=== PATIENT | male | born 1960 | race Caucasian/White ===

== ENCOUNTER 2017-12-21 10:37 | Day surgery (SDC) | payer OTHER ==
[2017-12-18 10:24] VITALS: BMI 33.3
[~2017-12-21 10:37] MED LIST: LACTATED RINGERS 1,000 ML IV SCH; LIDOCAINE 1% 20 ML VIAL (10MG/ML) FOR IV START INTRADERMA PRN; MIDAZOLAM 2 MG/2 ML VIAL IV PRN
[2017-12-21 10:58] VITALS: RESP 18; TEMP 98.5
[2017-12-21] MEDS ORDERED: LIDOCAINE 1% 20 ML VIAL (10MG/ML) FOR IV START INTRADERMA ONE (11:11)
--- NOTE | 2017-12-21 11:57 | P.GSHP ---
History of Present Illness H&P Date: 12/21/17 Chief Complaint: GI bleed This a 57-year-old male who's had issues with rectal bleeding. Patient presents today for colonoscopy. Past Medical History Past Medical History: GERD/Reflux, Hypertension Additional Past Medical History / Comment(s): bleeding with stools and colors the toilet water red,loose stools,abdominal gas feeling,irregular heartbeat History of Any Multi-Drug Resistant Organisms: None Reported Additional Past Surgical History / Comment(s): colonoscopy Past Anesthesia/Blood Transfusion Reactions: No Reported Reaction Smoking Status: Former smoker - Past Family History Mother Family Medical History: No Reported History Father Family Medical History: Cancer Additional Family Medical History / Comment(s): melanoma Medications and Allergies Home Medications Medication Instructions Recorded Confirmed Type Benazepril [Lotensin] 10 mg PO DAILY 12/18/17 12/21/17 History Cyanocobalamin (Vitamin B-12) 1,000 mcg PO DAILY 12/18/17 12/21/17 History [Vitamin B-12] Omeprazole 40 mg PO DAILY 12/18/17 12/21/17 History amLODIPine [Norvasc] 5 mg PO QAM 12/18/17 12/21/17 History Allergies Allergy/AdvReac Type Severity Reaction Status Date / Time No Known Allergies Allergy Verified 12/21/17 11:01 Surgical - Exam Vital Signs Temp Pulse Resp BP Pulse Ox 98.5 F 106 H 18 161/94 98 12/21/17 10:57 12/21/17 10:57 12/21/17 10:57 12/21/17 10:57 12/21/17 10:57 - General well developed, no distress - Eyes PERRL - ENT normal pinna - Neck no masses - Respiratory normal expansion - Cardiovascular Rhythm: regular - Abdomen Abdomen: soft, non tender Assessment and Plan Assessment: GI bleed. We'll perform colonoscopy.
[2017-12-21] MEDS ORDERED: LIDOCAINE 1% INJ 10MG/ML (20 ML MDV) ONE (11:58)
[2017-12-21] MEDS ORDERED: PROPOFOL 10 MG/ML 20 ML VIAL IV ONE (11:58)
--- NOTE | 2017-12-21 12:12 | P.OP ---
Date of Procedure: 12/21/17 Preoperative Diagnosis: GI bleed Postoperative Diagnosis: Proctitis Procedure(s) Performed: Colonoscopy Anesthesia: MAC Surgeon: Kimani Jiménez Pathology: other (Rectum) Condition: stable Disposition: PACU Description of Procedure: The patient's placed on the endoscopy table in the lateral position. He received IV sedation. Digital rectal exam was performed which revealed a few internal hemorrhoids. The flexible colonoscope was then placed patient anus passed throughout the entire colon. The ileocecal valve was visualized. The cecum, ascending and transverse colon appeared normal. The descending and sigmoid colon appeared normal. The scope was then brought back the rectum and the mucosa was very inflamed and friable. Several biopsies were performed. Scope was then withdrawn from the patient.
[2017-12-21 12:28] VITALS: BP 130/89; PULSE 81
== END 2017-12-21 12:44 | disposition home or self-care (01) ==
LOC: ORWHC2ENDO 10:37
PROVIDERS: ATTEND Surgery
DX: K52.9 Noninfective gastroenteritis and colitis, unspecified (principal); K62.89 Other specified diseases of anus and rectum; K64.8 Other hemorrhoids; K21.9 Gastro-esophageal reflux disease without esophagitis; I10 Essential (primary) hypertension; Z79.899 Other long term (current) drug therapy; Z87.891 Personal history of nicotine dependence
CPT/HCPCS: 45380; J2001; J2704; 88305

== ENCOUNTER 2020-02-06 21:41 | Inpatient (IN) | payer BC ==
[2020-02-06] MEDS ORDERED: ACETAMINOPHEN TAB 500 MG TAB PO STA (22:11)
[2020-02-06] MEDS ORDERED: IBUPROFEN 600 MG TAB PO STA (22:11)
--- NOTE | 2020-02-06 22:12 | ED ---
Fever HPI - General Chief Complaint: Chest Pain Stated Complaint: Fever, Chest Pain Time Seen by Provider: 02/06/20 22:10 Source: patient, RN notes reviewed, old records reviewed Mode of arrival: wheelchair Limitations: no limitations - History of Present Illness Initial Comments: This is a 59-year-old male DF for evaluation patient's episodic chest pain for one week positive nausea no vomiting no improvement or worsening of symptoms. No fevers. No travel history or sick contacts. Patient does have persistent chest pain currently. Denying any trauma. No cough or congestion, no current shortness of breath, patient does have history of high blood pressure MD Complaint: fever, weakness (Been chest pain), other (Not feeling well) -: week(s) Temperature Source: subjective Context: multiple patients with similar symptoms Associated Symptoms: chills, cough, chest pain Treatments Prior to Arrival: none - Related Data Home Medications Medication Instructions Recorded Confirmed Ergocalciferol (Vitamin D2) 50,000 unit PO MO 02/06/20 02/06/20 [Drisdol] Hydroxychloroquine Sulfate 200 mg PO BID 02/06/20 02/06/20 [Plaquenil] Mesalamine 1,600 mg PO TID 02/06/20 02/06/20 Omeprazole 20 mg PO DAILY 02/06/20 02/06/20 Previous Rx's Medication Instructions Recorded Amoxicillin/Potassium Clav 1 tab PO Q12HR 4 Days #8 tab 02/09/20 [Augmentin 875-125 Tablet] Aspirin 81 mg PO DAILY chew 02/09/20 Metoprolol Tartrate [Lopressor] 25 mg PO BID #60 tab 02/09/20 metroNIDAZOLE [Flagyl] 500 mg PO TID #12 tab 02/09/20 Allergies Allergy/AdvReac Type Severity Reaction Status Date / Time No Known Allergies Allergy Verified 02/06/20 23:48 Review of Systems ROS Statement: Those systems with pertinent positive or pertinent negative responses have been documented in the HPI. ROS Other: All systems not noted in ROS Statement are negative. Past Medical History Past Medical History: GERD/Reflux, Hypertension Additional Past Medical History / Comment(s): bleeding with stools and colors the toilet water red,loose stools,abdominal gas feeling,irregular heartbeat, colitis, arthritis History of Any Multi-Drug Resistant Organisms: None Reported Additional Past Surgical History / Comment(s): colonoscopy Past Anesthesia/Blood Transfusion Reactions: No Reported Reaction Past Psychological History: No Psychological Hx Reported Smoking Status: Former smoker Past Alcohol Use History: Occasional Past Drug Use History: None Reported - Past Family History Mother Family Medical History: No Reported History Father Family Medical History: Cancer Additional Family Medical History / Comment(s): melanoma General Exam Limitations: no limitations General appearance: alert, in no apparent distress, anxious Head exam: Present: atraumatic, normocephalic, normal inspection Eye exam: Present: normal appearance, PERRL, EOMI. Absent: scleral icterus, co njunctival injection, periorbital swelling ENT exam: Present: normal exam, mucous membranes moist Neck exam: Present: normal inspection. Absent: tenderness, meningismus, lymphadenopathy Respiratory exam: Present: normal lung sounds bilaterally. Absent: respiratory distress, wheezes, rales, rhonchi, stridor Cardiovascular Exam: Present: normal rhythm, tachycardia, normal heart sounds. Absent: systolic murmur, diastolic murmur, rubs, gallop, clicks GI/Abdominal exam: Present: soft, normal bowel sounds. Absent: distended, tenderness, guarding, rebound, rigid Extremities exam: Present: normal inspection, full ROM, normal capillary refill. Absent: tenderness, pedal edema, joint swelling, calf tenderness Back exam: Present: normal inspection Neurological exam: Present: alert, oriented X3, CN II-XII intact Psychiatric exam: Present: normal affect, normal mood Skin exam: Present: warm, dry, intact, normal color. Absent: rash Course Vital Signs 02/06/20 02/07/20 21:49 00:48 Temperature 102.6 F H 100.7 F H Pulse Rate 103 H 91 Respiratory 18 18 Rate Blood Pressure 144/81 130/70 O2 Sat by Pulse 98 95 Oximetry - Reevaluation(s) Reevaluation #1: Medical record is reviewed Patient does have diffuse body pain diffuse chest pain Patient is highly suspicious for covert infection Medical Decision Making - Medical Decision Making 59 male DF for evaluation patient presents today for evaluation of fever and chest pain bodyaches and pains. Patient be admitted for rule out covert, observation and symptom control - Lab Data Result diagrams: 02/09/20 05:53 02/09/20 05:53 Lab Results 06/08/20 06/08/20 06/08/20 Range/Units 22:10 22:10 22:10 WBC 6.3 (3.8-10.6) k/uL RBC 3.86 L (4.30-5.90) m/uL Hgb 11.9 L (13.0-17.5) gm/dL Hct 36.0 L (39.0-53.0) % MCV 93.4 (80.0-100.0) fL MCH 30.9 (25.0-35.0) pg MCHC 33.1 (31.0-37.0) g/dL RDW 12.6 (11.5-15.5) % Plt Count 204 (150-450) k/uL Neutrophils % 78 % Lymphocytes % 13 % Monocytes % 5 % Eosinophils % 3 % Basophils % 0 % Neutrophils # 4.9 (1.3-7.7) k/uL Lymphocytes # 0.8 L (1.0-4.8) k/uL Monocytes # 0.3 (0-1.0) k/uL Eosinophils # 0.2 (0-0.7) k/uL Basophils # 0.0 (0-0.2) k/uL PT 10.0 (9.0-12.0) sec INR 1.0 (<1.2) APTT 25.7 (22.0-30.0) sec D-Dimer 0.74 H (<0.60) mg/L FEU Sodium 132 L (137-145) mmol/L Potassium 4.1 (3.5-5.1) mmol/L Chloride 103 (98-107) mmol/L Carbon Dioxide 21 L (22-30) mmol/L Anion Gap 8 mmol/L BUN 20 (9-20) mg/dL Creatinine 1.45 H (0.66-1.25) mg/dL Est GFR (CKD-EPI)AfAm 61 (>60 ml/min/1.73 sqM) Est GFR (CKD-EPI)NonAf 53 (>60 ml/min/1.73 sqM) Glucose 183 H (74-99) mg/dL Plasma Lactic Acid Marlo (0.7-2.0) mmol/L Calcium 8.7 (8.4-10.2) mg/dL Magnesium 1.8 (1.6-2.3) mg/dL Ferritin 257.3 (22.0-322.0) ng/mL Total Bilirubin 0.5 (0.2-1.3) mg/dL AST 19 (17-59) U/L ALT 15 (4-49) U/L Alkaline Phosphatase 67 (38-126) U/L Lactate Dehydrogenase 378 (313-618) U/L Troponin I (0.000-0.034) ng/mL C-Reactive Protein 49.3 H (<10.0) mg/L Total Protein 6.9 (6.3-8.2) g/dL Albumin 3.8 (3.5-5.0) g/dL Procalcitonin (0.02-0.09) ng/mL Coronavirus (PCR) (Not Detected) 02/06/20 02/06/20 02/06/20 Range/Units 22:10 22:10 22:10 WBC (3.8-10.6) k/uL RBC (4.30-5.90) m/uL Hgb (13.0-17.5) gm/dL Hct (39.0-53.0) % MCV (80.0-100.0) fL MCH (25.0-35.0) pg MCHC (31.0-37.0) g/dL RDW (11.5-15.5) % Plt Count (150-450) k/uL Neutrophils % % Lymphocytes % % Monocytes % % Eosinophils % % Basophils % % Neutrophils # (1.3-7.7) k/uL Lymphocytes # (1.0-4.8) k/uL Monocytes # (0-1.0) k/uL Eosinophils # (0-0.7) k/uL Basophils # (0-0.2) k/uL PT (9.0-12.0) sec INR (<1.2) APTT (22.0-30.0) sec D-Dimer (<0.60) mg/L FEU Sodium (137-145) mmol/L Potassium (3.5-5.1) mmol/L Chloride (98-107) mmol/L Carbon Dioxide (22-30) mmol/L Anion Gap mmol/L BUN (9-20) mg/dL Creatinine (0.66-1.25) mg/dL Est GFR (CKD-EPI)AfAm (>60 ml/min/1.73 sqM) Est GFR (CKD-EPI)NonAf (>60 ml/min/1.73 sqM) Glucose (74-99) mg/dL Plasma Lactic Acid Marlo 1.3 (0.7-2.0) mmol/L Calcium (8.4-10.2) mg/dL Magnesium (1.6-2.3) mg/dL Ferritin (22.0-322.0) ng/mL Total Bilirubin (0.2-1.3) mg/dL AST (17-59) U/L ALT (4-49) U/L Alkaline Phosphatase (38-126) U/L Lactate Dehydrogenase (313-618) U/L Troponin I 0.139 H* (0.000-0.034) ng/mL C-Reactive Protein (<10.0) mg/L Total Protein (6.3-8.2) g/dL Albumin (3.5-5.0) g/dL Procalcitonin 0.15 H (0.02-0.09) ng/mL Coronavirus (PCR) (Not Detected) 02/06/20 Range/Units 22:48 WBC (3.8-10.6) k/uL RBC (4.30-5.90) m/uL Hgb (13.0-17.5) gm/dL Hct (39.0-53.0) % MCV (80.0-100.0) fL MCH (25.0-35.0) pg MCHC (31.0-37.0) g/dL RDW (11.5-15.5) % Plt Count (150-450) k/uL Neutrophils % % Lymphocytes % % Monocytes % % Eosinophils % % Basophils % % Neutrophils # (1.3-7.7) k/uL Lymphocytes # (1.0-4.8) k/uL Monocytes # (0-1.0) k/uL Eosinophils # (0-0.7) k/uL Basophils # (0-0.2) k/uL PT (9.0-12.0) sec INR (<1.2) APTT (22.0-30.0) sec D-Dimer (<0.60) mg/L FEU Sodium (137-145) mmol/L Potassium (3.5-5.1) mmol/L Chloride (98-107) mmol/L Carbon Dioxide (22-30) mmol/L Anion Gap mmol/L BUN (9-20) mg/dL Creatinine (0.66-1.25) mg/dL Est GFR (CKD-EPI)AfAm (>60 ml/min/1.73 sqM) Est GFR (CKD-EPI)NonAf (>60 ml/min/1.73 sqM) Glucose (74-99) mg/dL Plasma Lactic Acid Marlo (0.7-2.0) mmol/L Calcium (8.4-10.2) mg/dL Magnesium (1.6-2.3) mg/dL Ferritin (22.0-322.0) ng/mL Total Bilirubin (0.2-1.3) mg/dL AST (17-59) U/L ALT (4-49) U/L Alkaline Phosphatase (38-126) U/L Lactate Dehydrogenase (313-618) U/L Troponin I (0.000-0.034) ng/mL C-Reactive Protein (<10.0) mg/L Total Protein (6.3-8.2) g/dL Albumin (3.5-5.0) g/dL Procalcitonin (0.02-0.09) ng/mL Coronavirus (PCR) Not Detected (Not Detected) - EKG Data -: EKG Interpreted by Me (EKG shows sinus tachycardia rate of 110, SC 144, QRS 80, QTC 422) - Radiology Data Radiology results: report reviewed (Chest x-rays negative for acute disease, CT chest is negative for acute disease), image reviewed Critical Care Time Critical Care Time: Yes Total Critical Care Time: 31 Disposition Clinical Impression: Acute non-ST elevation myocardial infarction (NSTEMI), Fever, Chest pain Narrative: roCOVID Disposition: ADMITTED IP TO THIS HOSP Condition: Stable Is patient prescribed a controlled substance at d/c from ED?: No
[2020-02-06] MEDS ORDERED: MORPHINE SULFATE 4 MG/ML SYRINGE IVP STA (22:13)
[2020-02-06 22:26] LABS: Basophils % (A) 0 %; Eosinophils # (A) 0.2 k/uL (0-0.7); Eosinophils % (A) 3 %; HGB 11.9 gm/dL (13.0-17.5); Lymphocytes # (A) 0.8 k/uL (1.0-4.8); Lymphocytes % (A) 13 %; MCH 30.9 pg (25.0-35.0); MCHC 33.1 g/dL (31.0-37.0); MCV 93.4 fL (80.0-100.0); Monocytes # (A) 0.3 k/uL (0-1.0); Monocytes % (A) 5 %; Neutrophils # (A) 4.9 k/uL (1.3-7.7); Neutrophils % (A) 78 %; Platelet Count 204 k/uL (150-450); RBC 3.86 m/uL (4.30-5.90); RDW 12.6 % (11.5-15.5); WBC 6.3 k/uL (3.8-10.6)
[2020-02-06 22:37] LABS: Albumin 3.8 g/dL (3.5-5.0); C Reactive Protein 49.3 mg/L (<10.0); Calcium 8.7 mg/dL (8.4-10.2); Magnesium 1.8 mg/dL (1.6-2.3); Potassium 4.1 mmol/L (3.5-5.1); Total Bilirubin 0.5 mg/dL (0.2-1.3); Total Protein 6.9 g/dL (6.3-8.2)
--- NOTE | 2020-02-06 22:40 | XR ---
EXAMINATION TYPE: XR chest 2V DATE OF EXAM: 02/06/2020 COMPARISON: NONE HISTORY: Chest pain TECHNIQUE: 2 views FINDINGS: Heart and mediastinum are normal. Lungs are clear of infiltrate. There is minimal subsegmen anton atelectasis in the lower lung rodríguez. There is no pleural effusion. Bony thorax is intact. IMPRESSION: Minimal subsegmental atelectasis. Normal heart.
[2020-02-06 22:52] LABS: Partial Thromboplastin Time 25.7 sec (22.0-30.0)
[2020-02-06 23:12] LABS: D-Dimer 0.74 mg/L FEU (<0.60)
[2020-02-06] MEDS ORDERED: MORPHINE SULFATE 4 MG/ML SYRINGE IV PRN (23:21)
[2020-02-06] MEDS ORDERED: HEPARIN SODIUM,PORCINE 5,000 UNIT/ML 1 ML VIAL IV PRN (23:21)
[2020-02-06] MEDS ORDERED: ASPIRIN 81 MG PO STA (23:21)
[2020-02-06] MEDS ORDERED: NITROGLYCERIN SL TABS 0.4 MG TAB SUBLINGUAL PRN (23:21)
[2020-02-06] MEDS ORDERED: HEPARIN SODIUM,PORCINE 5,000 UNIT/ML 1 ML VIAL IV ONE (23:21)
[2020-02-06] MEDS ORDERED: HEPARIN SOD,PORK IN 0.45% NACL 25,000 UNIT in 0.45% NACL 1 250ML.BAG IV SCH (23:30)
--- NOTE | 2020-02-07 00:05 | CT ---
EXAMINATION TYPE: CT angio chest DATE OF EXAM: 02/06/2020 COMPARISON: None HISTORY: FEVER, COUGH CT DLP: 665.4 mGycm Automated exposure control for dose reduction was used. CONTRAST: Performed with IV Contrast, patient injected with 75 mL of Isovue 370. Multiple axial sections were obtained from the thoracic inlet to the diaphragm with IV contrast and 3 -D post processed images. There is mild subsegmental atelectasis and interstitial density right lower lobe and to a lesser exte nt left lower lobe. There is no pleural effusion. Heart size is normal. There is no pericardial effus ion. There are no hilar masses. There is no mediastinal adenopathy. There are paratracheal lymph node s that measure up to 7 mm. Thoracic aorta is intact. There is no aneurysm or dissection. There is normal contrast opacification of the pulmonary arteries. I see no filling defect. Bony thora x is intact. Upper abdominal soft tissues are intact. IMPRESSION: No evidence of pulmonary embolism. Mild interstitial density and subsegmental atelectasis at the lung bases.
[2020-02-07 01:07] LABS: Glucose,Whole Blood 128 mg/dL (75-99)
[2020-02-07 04:55] LABS: Basophils % (A) 0 %; Eosinophils # (A) 0.1 k/uL (0-0.7); Eosinophils % (A) 3 %; HCT 34.9 % (39.0-53.0); HGB 11.6 gm/dL (13.0-17.5); Lymphocytes % (A) 19 %; MCH 31.9 pg (25.0-35.0); MCHC 33.4 g/dL (31.0-37.0); MCV 95.5 fL (80.0-100.0); Mean Platelet Volume 7.3; Monocytes # (A) 0.3 k/uL (0-1.0); Monocytes % (A) 6 %; Neutrophils # (A) 3.8 k/uL (1.3-7.7); Neutrophils % (A) 71 %; Platelet Count 175 k/uL (150-450); RBC 3.65 m/uL (4.30-5.90); RDW 12.6 % (11.5-15.5); WBC 5.4 k/uL (3.8-10.6)
[2020-02-07 05:08] LABS: Calcium 8.5 mg/dL (8.4-10.2); Potassium 4.6 mmol/L (3.5-5.1)
[2020-02-07] MEDS ORDERED: NITROGLYCERIN SL TABS 0.4 MG TAB SUBLINGUAL PRN (07:32)
[2020-02-07] MEDS ORDERED: ALPRAZolam 0.5 MG TAB PO PRN (07:32)
[2020-02-07] MEDS ORDERED: ASPIRIN 325 MG TAB PO STA (07:32)
[2020-02-07] MEDS ORDERED: ALPRAZolam 0.25 MG TAB PO PRN (07:32)
[2020-02-07] MEDS ORDERED: ATORVASTATIN 80 MG TAB PO STA (07:32)
[2020-02-07] MEDS ORDERED: SODIUM CHLORIDE 0.9% 1,000 ML in EMPTY BAG 1 BAG IV ONE (07:32)
[2020-02-07] MEDS: ASPIRIN 81 MG PO SCH (08:39)
[2020-02-07] MEDS: METOPROLOL TARTRATE 25 MG TAB PO SCH ×2 (08:54→20:07)
[2020-02-07] MEDS ORDERED: ASPIRIN 325 MG TAB PO SCH (09:00)
[2020-02-07 09:11] LABS: Glucose,Whole Blood 113 mg/dL (75-99)
--- NOTE | 2020-02-07 10:35 | CONS ---
CONSULTATION Mr. Glez is a 59-year-old male who presented with symptoms of chest discomfort. He had discomfort last week on and off, than yesterday much worse. Some of his discomfort is exertional in pattern and he had a low-grade fever on presentation that subsequently resolved. He denies any cough or wheezing. The patient has no prior cardiac history. About a week ago he had swelling and effusion in the right knee that was drained. He has no prior cardiac workup. He denies any PND, orthopnea. He had a prior history of smoking which he stopped about 4 years ago. He has a history of hypertension. No diabetes. He has a history of colitis and occasional alcohol intake. MEDICATIONS: At home include omeprazole, Norvasc 5 mg daily, Plaquenil 200 mg twice a day, benazepril 40 mg daily, Tenormin 50 mg daily, and mesalamine 1600 mg 3 times a day, and vitamin D. REVIEW OF SYSTEMS: RESPIRATORY SYSTEM: He has no recent wheezing or cough. No history of documented obstructive lung disease. GI SYSTEM: He has history of colitis with occasional bleeding that has been stable. SYSTEM: No dysuria or hematuria. NERVOUS SYSTEM: No stroke or seizure. PHYSICAL EXAMINATION: He is a 59-year-old male, alert, oriented, in no apparent distress. Blood pressure 102/60 with a heart rate in the 70s. Temperature 98.3, on presentation 102.6. HEAD: Normocephalic. EYES: Sclerae nonicteric. NECK: Good upstroke, no bruit, no distention. LUNGS: Clear to auscultation. HEART: Regular rate and rhythm, S1, S2. No S3. No S4. No rub. ABDOMEN: Soft, nontender, obese. Positive bowel sounds, no organomegaly. EXTREMITIES: No edema, intact pulses. Right knee no tenderness. LAB DATA: Revealed a white blood cell of 5.4, hemoglobin of 11.6, BUN and creatinine 19 and 1.4, potassium 4.6. Troponin 0.139 and 0.390. Cholesterol 126, LDL of 75. His D-dimer was 0.74. His CT angiogram of the chest revealed no evidence of pulmonary embolism. His EKG reveals sinus mechanism, rate of [address]-segment depression on the lateral precordial leads. Her chest x-ray revealed minimal subsegmental atelectasis. IMPRESSION: 1. Non ST-segment elevation myocardial infarction. 2. Low-grade fever, resolved of unclear source. 3. History of hypertension. 4. Remote history of smoking. 5. History of colitis, stable. RECOMMENDATION: From the cardiac standpoint, I will obtain echocardiogram with Doppler. I would recommend to proceed with cardiac catheterization to further assess his status and guide his treatment. The rationale behind the procedures, risks, and complication were discussed with the patient, who is in full understanding and agreement. Thank you for this consult. Will follow with you. MMODL / IJN: [id number] /
--- NOTE | 2020-02-07 11:20 | ECHOF ---
Referral Reason:elevTrop MEASUREMENTS -------- HEIGHT: 157.5 cm WEIGHT: 116.6 kg BP: 94/63 RVIDd: 4.2 cm (< 3.3) IVSd: 1.6 cm (0.6 - 1.1) LVIDd: 4.9 cm (3.9 - 5.3) LVPWd: 1.5 cm (0.6 - 1.1) IVSs: 2.0 cm LVIDs: 3.6 cm LVPWs: 2.0 cm Ao Diam: 3.4 cm (2.0 - 3.7) AV Cusp: 2.6 cm (1.5 - 2.6) LA Diam: 3.2 cm (2.7 - 3.8) MV EXCURSION: 20.651 mm (> 18.000) MV EF SLOPE: 122 mm/s (70 - 150) EPSS: 0.6 cm MV E Randolph: 0.65 m/s MV DecT: 253 ms MV A Randolph: 0.49 m/s MV E/A Ratio: 1.33 RAP: 5.00 mmHg RVSP: 34.99 mmHg FINDINGS -------- Sinus rhythm. This was a technically difficult study with suboptimal views. The left ventricular size is normal. There is moderate concentric left ventricular hypertrophy. O verall left ventricular systolic function is low-normal with, an EF between 50 - 55 %. The right ventricle is severely enlarged. The left atrial size is normal. The right atrial size is normal. Lumason used The aortic valve is trileaflet and appears structurally normal. The mitral valve is normal. Mild mitral regurgitation is present. The tricuspid valve appears structurally normal. Mild tricuspid regurgitation present. Right vent ricular systolic pressure is normal at < 35 mmHg. There is no pulmonic regurgitation present. The aortic root size is normal. IVC Not well visulized. There is no pericardial effusion. CONCLUSIONS -------- 1. Sinus rhythm. 2. This was a technically difficult study with suboptimal views. 3. The left ventricular size is normal. 4. There is moderate concentric left ventricular hypertrophy. 5. Overall left ventricular systolic function is low-normal with, an EF between 50 - 55 %. 6. The right ventricle is severely enlarged. 7. The left atrial size is normal. 8. The right atrial size is normal. 9. Lumason used 10. The aortic valve is trileaflet and appears structurally normal. 11. The mitral valve is normal. 12. Mild mitral regurgitation is present. 13. The tricuspid valve appears structurally normal. 14. Mild tricuspid regurgitation present. 15. Right ventricular systolic pressure is normal at < 35 mmHg. 16. There is no pulmonic regurgitation present. 17. The aortic root size is normal. 18. IVC Not well visulized. 19. There is no pericardial effusion. COMMUNICATIONS SPECIALIST: Keke Purcell RDCS
[2020-02-07 12:28] LABS: Ferritin 257.3 ng/mL (22.0-322.0)
[2020-02-07] MEDS ORDERED: fentaNYL (PF) 50 MCG/ML 2 ML AMP IVP ONE (12:28)
[2020-02-07] MEDS ORDERED: MIDAZOLAM 2 MG/2 ML VIAL IVP ONE (12:28)
[2020-02-07] MEDS ORDERED: LIDOCAINE 1% INJ 10MG/ML (20 ML MDV) SQ ONE (12:28)
[2020-02-07] MEDS ORDERED: VERAPAMIL SYRINGE (5 MG/10 ML) INTRAARTER ONE (12:31)
[2020-02-07] MEDS ORDERED: HEPARIN SODIUM 1,000 UN/ML (10ML VL) IV ONE (12:36)
[2020-02-07] MEDS ORDERED: IOPAMIDOL-370 125ML BTL INJ ONE (12:38)
[2020-02-07] MEDS ORDERED: IV FLUID CONTINUATION 700 ML IV ONE (12:39)
[2020-02-07] MEDS ORDERED: RX INFO: IV CONTRAST WAS GIVEN 1 EACH MISC MISCELLANE PRN (12:50)
[2020-02-07] MEDS ORDERED: SODIUM CHLORIDE 0.9% 1,000 ML IV SCH (13:00)
[2020-02-07] MEDS: IOPAMIDOL CONTRAST (ORAL USE) VIAL PO PRN ×2 (15:15→16:21)
--- NOTE | 2020-02-07 16:17 | CC ---
CARDIAC CATHETERIZATION REPORT Mr. Glez is a 59-year-old male with known history of hypertension, history of colitis, who presented with symptoms of chest discomfort on and off for the last week, at times exertional in pattern; yesterday much worse. He also had a low-grade fever on presentation that subsequently resolved. After presentation he was found to have an elevated troponin. In view of that, recommendation was made regarding cardiac catheterization. The procedure, its risks and complications were discussed with the patient, who was in full understanding and agreement. PROCEDURE DESCRIPTION: Patient was brought to the [facility] tender restoration labor in a fasting, semi-sedated state after receiving fentanyl and Benadryl and achieving moderate conscious sedated state. Using Xylocaine anesthesia and Seldinger technique, a 6-Romanian sheath was introduced in the right radial artery. Selective right and left coronary angiography was performed using 5 Romanian 3-1/2 bend right and left Eloina catheters. Multiple views were taken of the coronary arteries, including hemiaxial views. Following that, the right Eloina catheter was used to cross the aortic valve and pressures were calculated. Following that, catheter and sheath were removed. Hemostasis was obtained with deployment of a TR band. There was no immediate complication. Patient was returned to his room in stable condition. Of note, the patient received 5000 units of intravenous heparin as well as intra-arterial verapamil. FINDINGS: LEFT MAIN: This is a short-sized vessel, large in caliber, bifurcating into left circumflex and left anterior descending artery. Left main coronary artery has no evidence of high-grade stenosis. LEFT ANTERIOR DESCENDING ARTERY: This is a large-sized vessel reaching toward the apex with a wrap around the apex segment giving rise to a large diagonal branch. The left anterior descending artery as well as its branches have no evidence of obstructive coronary artery disease. LEFT CIRCUMFLEX: This is a codominant large-sized vessel giving rise to two obtuse marginal branches and distally a left PDA. The left circumflex as well as its branches have no evidence of obstructive coronary artery disease. RIGHT CORONARY ARTERY: This is a moderately sized codominant vessel giving rise distally to PDA and a PLV. The right coronary artery as well as its branches have no evidence of obstructive coronary artery disease. LEFT VENTRICULOGRAM: Left ventriculogram was not performed. HEMODYNAMICS: There was no gradient across the aortic valve. The left ventricular end- diastolic pressure was 14 mmHg. CONCLUSION: 1. Normal coronary arteries with no evidence of obstructive coronary artery disease. 2. Normal left ventricular end-diastolic pressure. RECOMMENDATIONS: In view of findings and anatomy, I recommend continued medical therapy. The etiology of the elevation of the troponin is unclear. There is no evidence of obstructive disease, and on the echocardiogram there is no segmental wall motion abnormality. At this time I will continue present medical regimen. Those findings and recommendations were discussed with the patient, who is in full understanding and agreement. Duration of procedure was 15 minutes. DAVE / SARYN: [id number] /
--- NOTE | 2020-02-07 18:19 | CT ---
EXAMINATION TYPE: CT abdomen pelvis wo con DATE OF EXAM: 02/07/2020 COMPARISON: None HISTORY: fever, abdominal pain CT DLP: 1066.4 mGycm Automated exposure control for dose reduction was used. Images obtained from the diaphragm to the floor the pelvis with oral contrast only. Lung bases are clear of consolidation. There is no pleural effusion. Heart size is normal. There is n o pericardial effusion. Liver spleen pancreas gallbladder appear normal. Bile ducts are not dilated. Stomach has normal size. There is no adrenal mass. Kidneys have normal size and contour. There is some dilute contrast in the kidneys from contrast exam yesterday. There is no hydronephrosis. Ureters are not dilated. Bladder di stends smoothly without contrast. The bladder has normal size. There is no inguinal hernia. There is prostatic calcification. Appendix is posterior and appears normal. There is no mesenteric edema. There is no ascites or free air. There is no sign of a bowel obstructio n. Lumbar vertebra have normal alignment. Disc spaces are fairly normal. There is no compression fractur e. The bony pelvis appears intact. IMPRESSION: No sign of acute abdomen and pelvis. Normal appendix.
[2020-02-07] MEDS: metroNIDAZOLE 500 MG TAB PO SCH ×2 (18:49→22:02)
--- NOTE | 2020-02-07 22:04 | P.CONS ---
History of Present Illness - Reason for Consult Consult date: 02/07/20 Fever Requesting physician: Christiano Lutz - Chief Complaint chest pain and fever x 1 day - History of Present Illness Patient is a 59-year-old male with a past medical history significant for ulcerative colitis however apparently the patient seemed to have not been taking his medication as regularly patient presented to the ER at [facility] last night with chief complaints of chest pain patient apparently did have a discomfort off and on for about a week and the thought was more likely due to his muscle pull because of his work however her with the pain got worse that brought him to the hospital because have been more of a sharp in nature started worse with a deep breath and no radiation and no associated shortness of breath very minimal cough no nausea vomiting no abdominal pain patient did have some chronic diarrhea and apparently has recently slightly worse as he was not taking his colitis medication has advised with the symptom patient presented to hospital on arrival to the ER patient did have a fever of 102.6 F patient feels subsequently resolved and the patient will receive antibiotic therapy patient was tachycardic on presentation to the hospital work-up in the ER including patient did have a normal white count mild lymphopenia in the subsequently resolved d-dimer was slightly elevated creatinine was elevated 1.40 liver enzymes are normal troponin elevated CRP elevated and glucose is also slightly elevated LDH and ferritin has been normal lactic acid of 1.3 willett PCR is currently pending patient did have a CT angiogram that was were negative for PE and did not show any groundglass opacities or any consolidation patient has been admitted to the hospital ICU patient did have an echocardiogram and subsequent did have a cardiac cath did not show any obstructive disease infectious was consulted because of his fever and concern for possible COVID-19 infection. Review of Systems Positive point has been mentioned in HPI rest of the systems are negative Past Medical History Past Medical History: GERD/Reflux, Hypertension Additional Past Medical History / Comment(s): bleeding with stools and colors the toilet water red,loose stools,abdominal gas feeling,irregular heartbeat, colitis, arthritis History of Any Multi-Drug Resistant Organisms: None Reported Additional Past Surgical History / Comment(s): colonoscopy Past Anesthesia/Blood Transfusion Reactions: No Reported Reaction Past Psychological History: No Psychological Hx Reported Smoking Status: Former smoker Past Alcohol Use History: Occasional Additional Past Alcohol Use History / Comment(s): quit smoking 2016,started smoking at age 23,<1ppd Past Drug Use History: None Reported - Past Family History Mother Family Medical History: Hyperlipidemia Father Family Medical History: Cancer Additional Family Medical History / Comment(s): melanoma Medications and Allergies Home Medications Medication Instructions Recorded Confirmed Type amLODIPine [Norvasc] 5 mg PO DAILY 12/18/17 02/06/20 History Atenolol [Tenormin] 50 mg PO DAILY 02/06/20 02/06/20 History Benazepril HCl [Lotensin] 40 mg PO DAILY 02/06/20 02/06/20 History Ergocalciferol (Vitamin D2) 50,000 unit PO MO 02/06/20 02/06/20 History [Drisdol] Hydroxychloroquine Sulfate 200 mg PO BID 02/06/20 02/06/20 History [Plaquenil] Mesalamine 1,600 mg PO TID 02/06/20 02/06/20 History Omeprazole 20 mg PO DAILY 02/06/20 02/06/20 History Allergies Allergy/AdvReac Type Severity Reaction Status Date / Time No Known Allergies Allergy Verified 02/06/20 23:48 Physical Exam Vitals: Vital Signs Temp Pulse Resp BP Pulse Ox 02/07/20 13:00 98.0 F 68 22 96/66 98 02/07/20 11:00 64 20 106/68 02/07/20 10:00 72 30 H 106/68 02/07/20 09:00 80 23 106/68 02/07/20 08:00 97.9 F 75 22 108/68 99 02/07/20 04:00 98.3 F 73 18 94/63 96 02/07/20 01:05 99.2 F 88 18 102/64 96 02/07/20 00:48 100.7 F H 91 18 130/70 95 02/06/20 21:49 102.6 F H 103 H 18 144/81 98 Intake and Output 02/06/20 02/07/20 02/07/20 22:59 06:59 14:59 Intake Total 45.861 200 Output Total 950 900 Balance -904.139 -700 Intake: IV 200 Intake, IV Titration 45.861 Amount Heparin Sod,Pork in 0.45% 45.861 NaCl 25,000 unit In 0.45 % NaCl 1 250ml.bag @ 8.55 UNITS/KG/HR 10.006 mls/ hr IV .Q24H [facility] Rx#: [id number] Output: Urine 950 900 Other: Voiding Method Urinal Urinal Weight 117.027 kg 116.7 kg GENERAL DESCRIPTION: Middle-aged male lying in bed, no distress. No tachypnea or accessory muscle of respiration use. HEENT: Shows Pallor , no scleral icterus. Oral mucous membrane is dry. NECK: Trachea central, no thyromegaly. LUNGS: Unlabored breathing. Clear to auscultation anteriorly. No wheeze or crackle. HEART: S1, S2, regular rate and rhythm. ABDOMEN: Soft, no tenderness , guarding or rigidity EXTREMITIES: No edema of feet. SKIN: No rash, no masses palpable. NEUROLOGICAL: The patient is awake, alert, oriented x3, mood and affect normal. Results CBC & Chem 7: 02/07/20 04:33 02/07/20 04:33 Labs: Abnormal Lab Results - Last 24 Hours (Table) 02/06/20 02/06/20 02/06/20 Range/Units 22:10 22:10 22:10 RBC 3.86 L (4.30-5.90) m/uL Hgb 11.9 L (13.0-17.5) gm/dL Hct 36.0 L (39.0-53.0) % Lymphocytes # 0.8 L (1.0-4.8) k/uL APTT (22.0-30.0) sec D-Dimer 0.74 H (<0.60) mg/L FEU Sodium 132 L (137-145) mmol/L Carbon Dioxide 21 L (22-30) mmol/L Creatinine 1.45 H (0.66-1.25) mg/dL Glucose 183 H (74-99) mg/dL POC Glucose (mg/dL) (75-99) mg/dL Troponin I (0.000-0.034) ng/mL C-Reactive Protein 49.3 H (<10.0) mg/L HDL Cholesterol (40-60) mg/dL Procalcitonin (0.02-0.09) ng/mL 02/06/20 02/06/20 02/07/20 Range/Units 22:10 22:10 01:05 RBC (4.30-5.90) m/uL Hgb (13.0-17.5) gm/dL Hct (39.0-53.0) % Lymphocytes # (1.0-4.8) k/uL APTT (22.0-30.0) sec D-Dimer (<0.60) mg/L FEU Sodium (137-145) mmol/L Carbon Dioxide (22-30) mmol/L Creatinine (0.66-1.25) mg/dL Glucose (74-99) mg/dL POC Glucose (mg/dL) 128 H (75-99) mg/dL Troponin I 0.139 H* (0.000-0.034) ng/mL C-Reactive Protein (<10.0) mg/L HDL Cholesterol (40-60) mg/dL Procalcitonin 0.15 H (0.02-0.09) ng/mL 02/07/20 02/07/20 02/07/20 Range/Units 04:33 04:33 04:33 RBC 3.65 L (4.30-5.90) m/uL Hgb 11.6 L (13.0-17.5) gm/dL Hct 34.9 L (39.0-53.0) % Lymphocytes # (1.0-4.8) k/uL APTT 32.8 H (22.0-30.0) sec D-Dimer (<0.60) mg/L FEU Sodium (137-145) mmol/L Carbon Dioxide (22-30) mmol/L Creatinine (0.66-1.25) mg/dL Glucose (74-99) mg/dL POC Glucose (mg/dL) (75-99) mg/dL Troponin I 0.390 H* (0.000-0.034) ng/mL C-Reactive Protein (<10.0) mg/L HDL Cholesterol (40-60) mg/dL Procalcitonin (0.02-0.09) ng/mL 02/07/20 02/07/20 02/07/20 Range/Units 04:33 09:08 10:59 RBC (4.30-5.90) m/uL Hgb (13.0-17.5) gm/dL Hct (39.0-53.0) % Lymphocytes # (1.0-4.8) k/uL APTT (22.0-30.0) sec D-Dimer (<0.60) mg/L FEU Sodium 136 L (137-145) mmol/L Carbon Dioxide (22-30) mmol/L Creatinine 1.40 H (0.66-1.25) mg/dL Glucose 117 H (74-99) mg/dL POC Glucose (mg/dL) 113 H (75-99) mg/dL Troponin I 0.307 H* (0.000-0.034) ng/mL C-Reactive Protein (<10.0) mg/L HDL Cholesterol 36 L (40-60) mg/dL Procalcitonin (0.02-0.09) ng/mL 02/07/20 Range/Units 10:59 RBC (4.30-5.90) m/uL Hgb (13.0-17.5) gm/dL Hct (39.0-53.0) % Lymphocytes # (1.0-4.8) k/uL APTT 43.5 H (22.0-30.0) sec D-Dimer (<0.60) mg/L FEU Sodium (137-145) mmol/L Carbon Dioxide (22-30) mmol/L Creatinine (0.66-1.25) mg/dL Glucose (74-99) mg/dL POC Glucose (mg/dL) (75-99) mg/dL Troponin I (0.000-0.034) ng/mL C-Reactive Protein (<10.0) mg/L HDL Cholesterol (40-60) mg/dL Procalcitonin (0.02-0.09) ng/mL Assessment and Plan Assessment: patient presented to hospital with chest pain in this patient did have elevated troponin however the patient status post cardiac catheter with no evidence of any coronary disease he also have a CT angiogram that was negative for PE and did not show any consolidation or groundglass opacities patient did have a history of ulcerative colitis and apparently has vomiting his medication regularly with complaining of more diarrhea and some abdominal pain possible abdominal source for his fever and will need to cover for enteric gram-negative both aerobes and anaerobes. (1) Fever Current Visit: Yes Status: Acute Code(s): R50.9 - FEVER, UNSPECIFIED SNOMED Code(s): 838649097 Plan: 1-we will obtain a CT of abdominal pelvis with oral contrast only 2-check a stool for C. difficile and stool culture 3-empirically add Rocephin 2 g daily and Flagyl 500 p.o. every 8 We will follow on clinical condition and cultures to further adjust medication if needed Thank you for this consultation we will follow the patient along with you Time with Patient: Greater than 30
--- NOTE | 2020-02-07 22:36 | P.HPIM ---
History of Present Illness H&P Date: 02/07/20 Chief Complaint: fever, chest pain Alvarado Glez is a 59 yo M with PMH of HTN, GERD, ulcerative colitis, rheumatoid arthritis who presented to the ED complaining of chest pain and pressure. He states he has noticed pain across his chest intermittently over the past week but attributed that to muscle strain and working hard. His chest pain worsened the day prior to admission so he presented to the hospital. He also feels his ulcerative colitis has been flared recently abdominal cramping and pain. On presentation he was febrile to 102.6, WBC 6.3, Cr 1.45, trop 0.14. EKG with sinus tachycardia, no ST changes. Troponin was trended and peaked at 0.39. Pt denies cough, sore throat or respiratory symptoms. He is a former smoker quit approx 4 years ago. Review of Systems All systems: negative Constitutional: Reports malaise, Reports weakness, Denies chills, Denies fever Eyes: denies blurred vision, denies pain Ears, nose, mouth and throat: Denies headache, Denies sore throat Cardiovascular: Reports chest pain, Denies shortness of breath Respiratory: Denies cough Gastrointestinal: Reports abdominal pain, Reports diarrhea, Denies nausea, Denies vomiting Musculoskeletal: Denies myalgias Integumentary: Denies pruritus, Denies rash Neurological: Denies numbness, Denies weakness Psychiatric: Denies anxiety, Denies depression Endocrine: Denies fatigue, Denies weight change Past Medical History Past Medical History: GERD/Reflux, Hypertension Additional Past Medical History / Comment(s): bleeding with stools and colors the toilet water red,loose stools,abdominal gas feeling,irregular heartbeat, colitis, arthritis History of Any Multi-Drug Resistant Organisms: None Reported Additional Past Surgical History / Comment(s): colonoscopy Past Anesthesia/Blood Transfusion Reactions: No Reported Reaction Past Psychological History: No Psychological Hx Reported Smoking Status: Former smoker Past Alcohol Use History: Occasional Additional Past Alcohol Use History / Comment(s): quit smoking 2016,started smoking at age 23,<1ppd Past Drug Use History: None Reported - Past Family History Mother Family Medical History: Hyperlipidemia Father Family Medical History: Cancer Additional Family Medical History / Comment(s): melanoma Medications and Allergies Home Medications Medication Instructions Recorded Confirmed Type amLODIPine [Norvasc] 5 mg PO DAILY 12/18/17 02/06/20 History Atenolol [Tenormin] 50 mg PO DAILY 02/06/20 02/06/20 History Benazepril HCl [Lotensin] 40 mg PO DAILY 02/06/20 02/06/20 History Ergocalciferol (Vitamin D2) 50,000 unit PO MO 02/06/20 02/06/20 History [Drisdol] Hydroxychloroquine Sulfate 200 mg PO BID 02/06/20 02/06/20 History [Plaquenil] Mesalamine 1,600 mg PO TID 02/06/20 02/06/20 History Omeprazole 20 mg PO DAILY 02/06/20 02/06/20 History Allergies Allergy/AdvReac Type Severity Reaction Status Date / Time No Known Allergies Allergy Verified 02/06/20 23:48 Physical Exam Vitals: Vital Signs Temp Pulse Resp BP Pulse Ox 02/07/20 13:00 98.0 F 68 22 96/66 98 02/07/20 11:00 64 20 106/68 02/07/20 10:00 72 30 H 106/68 02/07/20 09:00 80 23 106/68 02/07/20 08:00 97.9 F 75 22 108/68 99 02/07/20 04:00 98.3 F 73 18 94/63 96 02/07/20 01:05 99.2 F 88 18 102/64 96 02/07/20 00:48 100.7 F H 91 18 130/70 95 02/06/20 21:49 102.6 F H 103 H 18 144/81 98 Intake and Output 02/07/20 02/07/20 02/07/20 06:59 14:59 22:59 Intake Total 45.861 200 Output Total 950 900 Balance -904.139 -700 Intake: IV 200 Intake, IV Titration 45.861 Amount Heparin Sod,Pork in 0.45% 45.861 NaCl 25,000 unit In 0.45 % NaCl 1 250ml.bag @ 8.55 UNITS/KG/HR 10.006 mls/ hr IV .Q24H [facility] Rx#: [id number] Output: Urine 950 900 Other: Voiding Method Urinal Urinal Weight 116.7 kg General: well nourished, well developed, NAD. Vitals reviewed Eyes: PERRL, EOMI, conjunctiva normal HENT: normocephalic, mucus membranes moist Neck: supple, no JVD Lungs: normal respiratory effort, no wheezes or rales CV: Regular rate and rhythm, no murmur. Peripheral pulses 2+ Abdomen: soft, nondistended, no organomegaly Lymph: no cervical or axillary LAD Skin: warm and dry. Neuro: A&Ox3, normal mood and affect Results CBC & Chem 7: 02/07/20 04:33 02/07/20 04:33 Labs: Abnormal Lab Results - Last 24 Hours (Table) 02/06/20 02/06/20 02/06/20 Range/Units 22:10 22:10 22:10 RBC 3.86 L (4.30-5.90) m/uL Hgb 11.9 L (13.0-17.5) gm/dL Hct 36.0 L (39.0-53.0) % Lymphocytes # 0.8 L (1.0-4.8) k/uL APTT (22.0-30.0) sec D-Dimer 0.74 H (<0.60) mg/L FEU Sodium 132 L (137-145) mmol/L Carbon Dioxide 21 L (22-30) mmol/L Creatinine 1.45 H (0.66-1.25) mg/dL Glucose 183 H (74-99) mg/dL POC Glucose (mg/dL) (75-99) mg/dL Troponin I (0.000-0.034) ng/mL C-Reactive Protein 49.3 H (<10.0) mg/L HDL Cholesterol (40-60) mg/dL Procalcitonin (0.02-0.09) ng/mL 02/06/20 02/06/20 02/07/20 Range/Units 22:10 22:10 01:05 RBC (4.30-5.90) m/uL Hgb (13.0-17.5) gm/dL Hct (39.0-53.0) % Lymphocytes # (1.0-4.8) k/uL APTT (22.0-30.0) sec D-Dimer (<0.60) mg/L FEU Sodium (137-145) mmol/L Carbon Dioxide (22-30) mmol/L Creatinine (0.66-1.25) mg/dL Glucose (74-99) mg/dL POC Glucose (mg/dL) 128 H (75-99) mg/dL Troponin I 0.139 H* (0.000-0.034) ng/mL C-Reactive Protein (<10.0) mg/L HDL Cholesterol (40-60) mg/dL Procalcitonin 0.15 H (0.02-0.09) ng/mL 02/07/20 02/07/20 02/07/20 Range/Units 04:33 04:33 04:33 RBC 3.65 L (4.30-5.90) m/uL Hgb 11.6 L (13.0-17.5) gm/dL Hct 34.9 L (39.0-53.0) % Lymphocytes # (1.0-4.8) k/uL APTT 32.8 H (22.0-30.0) sec D-Dimer (<0.60) mg/L FEU Sodium (137-145) mmol/L Carbon Dioxide (22-30) mmol/L Creatinine (0.66-1.25) mg/dL Glucose (74-99) mg/dL POC Glucose (mg/dL) (75-99) mg/dL Troponin I 0.390 H* (0.000-0.034) ng/mL C-Reactive Protein (<10.0) mg/L HDL Cholesterol (40-60) mg/dL Procalcitonin (0.02-0.09) ng/mL 02/07/20 02/07/20 02/07/20 Range/Units 04:33 09:08 10:59 RBC (4.30-5.90) m/uL Hgb (13.0-17.5) gm/dL Hct (39.0-53.0) % Lymphocytes # (1.0-4.8) k/uL APTT (22.0-30.0) sec D-Dimer (<0.60) mg/L FEU Sodium 136 L (137-145) mmol/L Carbon Dioxide (22-30) mmol/L Creatinine 1.40 H (0.66-1.25) mg/dL Glucose 117 H (74-99) mg/dL POC Glucose (mg/dL) 113 H (75-99) mg/dL Troponin I 0.307 H* (0.000-0.034) ng/mL C-Reactive Protein (<10.0) mg/L HDL Cholesterol 36 L (40-60) mg/dL Procalcitonin (0.02-0.09) ng/mL 02/07/20 Range/Units 10:59 RBC (4.30-5.90) m/uL Hgb (13.0-17.5) gm/dL Hct (39.0-53.0) % Lymphocytes # (1.0-4.8) k/uL APTT 43.5 H (22.0-30.0) sec D-Dimer (<0.60) mg/L FEU Sodium (137-145) mmol/L Carbon Dioxide (22-30) mmol/L Creatinine (0.66-1.25) mg/dL Glucose (74-99) mg/dL POC Glucose (mg/dL) (75-99) mg/dL Troponin I (0.000-0.034) ng/mL C-Reactive Protein (<10.0) mg/L HDL Cholesterol (40-60) mg/dL Procalcitonin (0.02-0.09) ng/mL Thrombosis Risk Factor Assmnt - Choose All That Apply Any of the Below Risk Factors Present?: Yes Each Factor Represents 1 point: Age 41-60 years, Obesity (BMI >25) Other Risk Factors: No Other congenital or acquired thrombophilia - If yes, enter type in comment: No Thrombosis Risk Factor Assessment Total Risk Factor Score: 2 Thrombosis Risk Factor Assessment Level: Low Risk Assessment and Plan (1) Ulcerative colitis Current Visit: Yes Status: Acute Code(s): K51.90 - ULCERATIVE COLITIS, UNSPECIFIED, WITHOUT COMPLICATIONS SNOMED Code(s): 19319016 (2) Acute non-ST elevation myocardial infarction (NSTEMI) Current Visit: Yes Status: Acute Code(s): I21.4 - NON-ST ELEVATION (NSTEMI) MYOCARDIAL INFARCTION SNOMED Code(s): 261579101 (3) Chest pain Current Visit: Yes Status: Acute Code(s): R07.9 - CHEST PAIN, UNSPECIFIED SNOMED Code(s): 22527415 (4) Fever Current Visit: Yes Status: Acute Code(s): R50.9 - FEVER, UNSPECIFIED SNOMED Code(s): 921397503 Plan: 1. NSTEMI. Admit to ICU, Cardiology consulted, heparin drip. ASA and lipitor. Start metoprolol. Morphine for pain 2. Fever, abdominal pain. Suspect flare of ulcerative colitis. Rule out COVID19, ID consulted. Pt started on rocephin and flagyl
[2020-02-08 05:49] LABS: Basophils % (A) 0 %; Eosinophils # (A) 0.2 k/uL (0-0.7); Eosinophils % (A) 4 %; HCT 34.1 % (39.0-53.0); HGB 11.3 gm/dL (13.0-17.5); Lymphocytes # (A) 0.9 k/uL (1.0-4.8); Lymphocytes % (A) 17 %; MCH 31.1 pg (25.0-35.0); MCHC 33.1 g/dL (31.0-37.0); MCV 93.9 fL (80.0-100.0); Mean Platelet Volume 6.8; Monocytes # (A) 0.4 k/uL (0-1.0); Monocytes % (A) 7 %; Neutrophils # (A) 3.6 k/uL (1.3-7.7); Neutrophils % (A) 69 %; Platelet Count 182 k/uL (150-450); RBC 3.63 m/uL (4.30-5.90); RDW 12.7 % (11.5-15.5); WBC 5.2 k/uL (3.8-10.6)
[2020-02-08 06:02] LABS: Calcium 8.7 mg/dL (8.4-10.2); Potassium 4.4 mmol/L (3.5-5.1)
[2020-02-08 06:44] VITALS: RESP 18
[2020-02-08] MEDS: metroNIDAZOLE 500 MG TAB PO SCH ×3 (08:32→22:25)
[2020-02-08] MEDS: ASPIRIN 81 MG PO SCH (08:32)
[2020-02-08] MEDS: METOPROLOL TARTRATE 25 MG TAB PO SCH ×2 (08:32→20:13)
--- NOTE | 2020-02-08 13:49 | P.PN ---
Subjective Progress Note Date: 02/08/20 Alvarado Glez is a 59 yo M with PMH of HTN, GERD, ulcerative colitis, rheumatoid arthritis who presented to the ED complaining of chest pain and pressure. He states he has noticed pain across his chest intermittently over the past week but attributed that to muscle strain and working hard. His chest pain worsened the day prior to admission so he presented to the hospital. He also feels his ulcerative colitis has been flared recently abdominal cramping and pain. On presentation he was febrile to 102.6, WBC 6.3, Cr 1.45, trop 0.14. EKG with sinus tachycardia, no ST changes. Troponin was trended and peaked at 0.39. Pt denies cough, sore throat or respiratory symptoms. He is a former smoker quit approx 4 years ago. 02/08/2020 underwent cardiac catheterization reporting normal coronary arteries and no evidence of obstructive CAD, normal left ventricular end-diastolic pressure, etiology of elevated troponin unclear. Denies chest pain, palpitations or shortness of breath. Denies nausea, vomiting or abdominal pain. Reports one diarrhea last night and again this morning with small amount of b lood. CT of abdomen and pelvis reported negative findings, stool negative for C. difficile. Continues on empiric Rocephin. Afebrile, normal WBC, coronavirus not detected. Afebrile, normal WBC. Hemoglobin stable at 11.3. Renal function improving . 1.11. Objective - Vital Signs Vital signs: Vital Signs Temp 98.4 F 02/08/20 06:43 Pulse 90 02/08/20 06:43 Resp 18 02/08/20 06:43 BP 128/79 02/08/20 06:43 Pulse Ox 96 02/08/20 06:43 Intake & Output 02/07/20 02/08/20 02/08/20 18:59 06:59 18:59 Intake Total 200 200 180 Output Total 900 1040 Balance -700 -840 180 Weight 114.7 kg Intake: IV 200 Oral 200 180 Output: Urine 900 840 Stool 200 Other: Voiding Method Urinal Urinal - Exam General: well nourished, well developed, sitting up in bed, NAD. Vitals reviewed Eyes: PERRL, EOMI, conjunctiva normal. Oral mucosa moist HENT: normocephalic, mucus membranes moist Neck: supple, no JVD Lungs: normal respiratory effort, no wheezes or rales CV: Regular rate and rhythm, no murmur. Peripheral pulses 2+ Abdomen: soft, nondistended, no organomegaly Lymph: no cervical or axillary LAD Skin: warm and dry. Neuro: A&Ox3, normal mood and affect Microbiology 02/07/20 14:53 Stool Stool Culture - Preliminary 02/06/20 22:10 Blood Blood Culture - Preliminary No Growth after 24 hours - Labs CBC & Chem 7: 02/08/20 05:15 02/08/20 05:15 Labs: Abnormal Lab Results - Last 24 Hours (Table) 02/06/20 02/07/20 02/07/20 Range/Units 22:10 09:08 10:59 RBC (4.30-5.90) m/uL Hgb (13.0-17.5) gm/dL Hct (39.0-53.0) % Lymphocytes # (1.0-4.8) k/uL APTT (22.0-30.0) sec Sodium (137-145) mmol/L Carbon Dioxide (22-30) mmol/L POC Glucose (mg/dL) 113 H (75-99) mg/dL Troponin I 0.307 H* (0.000-0.034) ng/mL Procalcitonin 0.15 H (0.02-0.09) ng/mL 02/07/20 02/08/20 02/08/20 Range/Units 10:59 05:15 05:15 RBC 3.63 L (4.30-5.90) m/uL Hgb 11.3 L (13.0-17.5) gm/dL Hct 34.1 L (39.0-53.0) % Lymphocytes # 0.9 L (1.0-4.8) k/uL APTT 43.5 H (22.0-30.0) sec Sodium 135 L (137-145) mmol/L Carbon Dioxide 21 L (22-30) mmol/L POC Glucose (mg/dL) (75-99) mg/dL Troponin I (0.000-0.034) ng/mL Procalcitonin (0.02-0.09) ng/mL Microbiology - Last 24 Hours (Table) 02/07/20 14:53 Stool Culture - Preliminary Stool 02/06/20 22:10 Blood Culture - Preliminary Blood No Growth after 24 hours Assessment and Plan Assessment: 1. Chest pain, Elevated troponins, normal cardiac catheterization, PE ruled out ,etiology unclear. 2. Fever, abdominal pain possible bacterial colitis as patient responding to empiric antibiotics , possible ulcerative colitis ,but this patient only having 1 bowel movement daily, in a patient with history of ulcerative colitis 3. Dehydration, secondary to the above 4. Rheumatoid arthritis 5. Coronavirus not detected Plan: Continue on current medication regime ,monitoring and symptomatic treatment. Maintain Rocephin,Flagyl as per infectious disease. Discharge planning in progress for tomorrow pending clearance and final DC antibiotic recommendations from infectious disease. The impression and plan of care has been dictated as directed. : I performed a history and examination of this patient, discussed the same with the dictator. I agree with the dictator's note ,documented as a scribe. Any additional findings or plans will be noted.
--- NOTE | 2020-02-08 14:01 | P.PN ---
Subjective Progress Note Date: 02/08/20 This is a pleasant 59-year-old gentleman with history of hypertension and colitis. Presented to the hospital with symptoms of chest discomfort on and off for the last week at times with exertion which became significantly worse prior to admission. Also complaining of low-grade fever on presentation that subsequently resolved. Patient was found have elevated troponin and in view of that was recommended to undergo cardiac catheterization. This revealed normal coronary arteries with no evidence of obstructive CAD and normal LV end- diastolic pressure. CT angiogram was negative for PE. He remains chest pain- free. Vital signs are stable. He remains afebrile. Labs today show white count of 5200, BUN 11, creatinine 1.11. Stool was negative for C. diff. Objective - Vital Signs Vital signs: Vital Signs Temp 98.8 F 02/08/20 08:00 Pulse 90 02/08/20 08:00 Resp 18 02/08/20 08:00 BP 136/77 02/08/20 08:00 Pulse Ox 99 02/08/20 08:00 Intake & Output 02/07/20 02/08/20 02/08/20 18:59 06:59 18:59 Intake Total 200 200 180 Output Total 900 1040 Balance -700 -840 180 Weight 114.7 kg Intake: IV 200 Oral 200 180 Output: Urine 900 840 Stool 200 Other: Voiding Method Urinal Urinal - Exam PHYSICAL EXAMINATION: HEENT: Head is atraumatic, normocephalic. Pupils equal, round. Neck is supple. There is no elevated jugular venous pressure. HEART EXAMINATION: Heart sounds regular, S1 and S2 normal. No murmur or gallop heard. CHEST EXAMINATION: Lungs are clear to auscultation. No chest wall tenderness is noted on palpation or with deep breathing. ABDOMEN: Soft, nontender. Bowel sounds are heard. No organomegaly noted. EXTREMITIES: 2+ peripheral pulses with no evidence of peripheral edema and no calf tenderness noted. Right radial puncture site soft without ecchymosis or hematoma. NEUROLOGIC patient is awake, alert and oriented x3. . - Labs CBC & Chem 7: 02/08/20 05:15 02/08/20 05:15 Labs: Abnormal Lab Results - Last 24 Hours (Table) 02/06/20 02/08/20 02/08/20 Range/Units 22:10 05:15 05:15 RBC 3.63 L (4.30-5.90) m/uL Hgb 11.3 L (13.0-17.5) gm/dL Hct 34.1 L (39.0-53.0) % Lymphocytes # 0.9 L (1.0-4.8) k/uL Sodium 135 L (137-145) mmol/L Carbon Dioxide 21 L (22-30) mmol/L Procalcitonin 0.15 H (0.02-0.09) ng/mL Microbiology - Last 24 Hours (Table) 02/07/20 14:53 Stool Culture - Preliminary Stool 02/06/20 22:10 Blood Culture - Preliminary Blood No Growth after 24 hours Assessment and Plan Assessment: #1 troponin elevation of unclear etiology, no evidence of obstructive CAD and no segmental wall motion abnormalities on echocardiogram #2 low-grade fever, resolved, unclear source, being followed by infectious disease #3 hypertension #4 remote history of smoking #5 history of colitis Plan: From cardiology's perspective, medications were reviewed and we will continue the same. From our standpoint patient may be discharged home when okay with primary and ID. He will follow-up in the office with Dr. Alejandra. SOLE ROUNDER note has been reviewed, I agree with a documented findings and plan of care. Patient was seen and examined.
--- NOTE | 2020-02-08 14:05 | PN ---
PROGRESS NOTE DATE OF SERVICE: 02/08/2020 REASON FOR FOLLOWUP: Fever and a question of colitis. INTERVAL HISTORY: The patient is currently afebrile, patient is breathing comfortably, patient denies having any chest pain. No shortness of breath or cough. No nausea, no vomiting. No abdominal pain. He did still have some blood in his stool, but no worsening diarrhea. PHYSICAL EXAMINATION: Blood pressure is 136/77 with a pulse of 90, temperature 98.8. He is 99% on room air. General description is a middle-aged male, lying in bed in no distress. RESPIRATORY SYSTEM: Unlabored breathing, clear to auscultation anteriorly. HEART: S1, S2. Regular rate and rhythm. ABDOMEN: Soft, no tenderness. LABS: Hemoglobin 11.1, white count of 5.2, BUN of 11, creatinine 1.11. Stool for C difficile negative, stool culture pending, blood culture so far negative. DIAGNOSTIC IMPRESSION AND PLAN: Patient with fever with concern for possible abdominal source. The patient did have a significant diarrhea with hematochezia in this patient. History of ulcerative colitis. CT abdominal, pelvis did not show any acute findings. Patient responding to Rocephin and Flagyl to continue while waiting for the culture to finalize. Continue supportive care. MMODL / IJN: [id number] /
[2020-02-09 06:34] LABS: Basophils % (A) 1 %; Eosinophils # (A) 0.3 k/uL (0-0.7); Eosinophils % (A) 7 %; HCT 37.3 % (39.0-53.0); Lymphocytes % (A) 24 %; MCH 30.2 pg (25.0-35.0); MCHC 32.3 g/dL (31.0-37.0); MCV 93.7 fL (80.0-100.0); Mean Platelet Volume 6.7; Monocytes # (A) 0.3 k/uL (0-1.0); Monocytes % (A) 8 %; Neutrophils # (A) 2.4 k/uL (1.3-7.7); Neutrophils % (A) 57 %; Platelet Count 198 k/uL (150-450); RBC 3.98 m/uL (4.30-5.90); RDW 12.6 % (11.5-15.5); WBC 4.3 k/uL (3.8-10.6)
[2020-02-09 07:03] LABS: Calcium 8.7 mg/dL (8.4-10.2); Potassium 4.3 mmol/L (3.5-5.1)
[2020-02-09 07:33] VITALS: BP 139/85; PULSE 74; TEMP 97.7
[2020-02-09] MEDS: metroNIDAZOLE 500 MG TAB PO SCH (07:34)
[2020-02-09] MEDS: ASPIRIN 81 MG PO SCH (07:35)
[2020-02-09] MEDS: METOPROLOL TARTRATE 25 MG TAB PO SCH (07:35)
--- NOTE | 2020-02-09 11:12 | P.DS ---
Providers Date of admission: 02/06/20 23:21 Expected date of discharge: 02/09/20 Attending physician: Dell Simons MD Consults: 02/06/20 23:21 Consult Physician Routine Consulting Provider: Katina Alejandra Consult Reason/Comments: elevTrop Do you want consulting provider notified?: Yes Consult Physician Urgent Consulting Provider: Shawn Gao Consult Reason/Comments: roCOVID Do you want consulting provider notified?: Yes Primary care physician: Kayla Rabago Hospital Course: 1. Chest pain, Elevated troponins, normal cardiac catheterization, PE ruled out ,etiology unclear. 2. Fever, abdominal pain, suspect bacterial colitis in a patient responding to empiric antibiotics , having 1 nonbloody bowel movement daily, in a patient with history of ulcerative colitis. Fever resolved. 3. Dehydration, secondary to the above 4. Rheumatoid arthritis 5. Coronavirus not detected Hospital course:Alvarado Glez is a 59 yo M with PMH of HTN, GERD, ulcerative colitis, rheumatoid arthritis who presented to the ED complaining of chest pain and pressure. He states he has noticed pain across his chest intermittently over the past week but attributed that to muscle strain and working hard. His chest pain worsened the day prior to admission so he presented to the hospital. He also feels his ulcerative colitis has been flared recently abdominal cramping and pain. On presentation he was febrile to 102.6, WBC 6.3, Cr 1.45, trop 0.14. EKG with sinus tachycardia, no ST changes. Troponin was trended and peaked at 0.39. Pt denies cough, sore throat or respiratory symptoms. He is a former smoker quit approx 4 years ago. 02/08/2020 underwent cardiac catheterization reporting normal coronary arteries and no evidence of obstructive CAD, normal left ventricular end-diastolic pressure, etiology of elevated troponin unclear. Denies chest pain, palpitations or shortness of breath. Denies nausea, vomiting or abdominal pain. Reports one diarrhea last night and again this morning with small amount of blood. CT of abdomen and pelvis reported negative findings, stool negative for C. difficile. Continues on empiric Rocephin. Afebrile, normal WBC, coronavirus not detected. Afebrile, normal WBC. Hemoglobin stable at 11.3. Renal function improving . 1.11. Significant clinical improvement. Cleared by cardiology for discharge. Patient will be discharged home in a stable condition with guarded prognosis. The impression and plan of care has been dictated as directed. : I performed a history and examination of this patient, discussed the same with the dictator. I agree with the dictator's note ,documented as a scribe. Any additional findings or plans will be noted. Patient Condition at Discharge: Stable Plan - Discharge Summary Discharge Rx Participant: Yes New Discharge Prescriptions: New Aspirin 81 mg PO DAILY chew metroNIDAZOLE [Flagyl] 500 mg PO TID #12 tab Metoprolol Tartrate [Lopressor] 25 mg PO BID #60 tab Amoxicillin/Potassium Clav [Augmentin 875-125 Tablet] 1 tab PO Q12HR 4 Days #8 tab Continue Omeprazole 20 mg PO DAILY Hydroxychloroquine Sulfate [Plaquenil] 200 mg PO BID Mesalamine 1,600 mg PO TID Ergocalciferol (Vitamin D2) [Drisdol] 50,000 unit PO MO Discontinued amLODIPine [Norvasc] 5 mg PO DAILY Benazepril HCl [Lotensin] 40 mg PO DAILY Atenolol [Tenormin] 50 mg PO DAILY Discharge Medication List Ergocalciferol (Vitamin D2) [Drisdol] 50,000 unit PO MO 02/06/20 [History] Hydroxychloroquine Sulfate [Plaquenil] 200 mg PO BID 02/06/20 [History] Mesalamine 1,600 mg PO TID 02/06/20 [History] Omeprazole 20 mg PO DAILY 02/06/20 [History] Amoxicillin/Potassium Clav [Augmentin 875-125 Tablet] 1 tab PO Q12HR 4 Days #8 tab 02/09/20 [Rx] Aspirin 81 mg PO DAILY chew 02/09/20 [Rx] Metoprolol Tartrate [Lopressor] 25 mg PO BID #60 tab 02/09/20 [Rx] metroNIDAZOLE [Flagyl] 500 mg PO TID #12 tab 02/09/20 [Rx] Follow up Appointment(s)/Referral(s): Katina Alejandra MD [STAFF PHYSICIAN] - 1 Week Dell Simons MD [STAFF PHYSICIAN] - 02/14/20 Activity/Diet/Wound Care/Special Instructions: Patient has prednisone taper from prior PCP visit to use for his rheumatoid arth ritis/right hand/right
[2020-02-09] MEDS ORDERED: BALSALAZIDE DISODIUM 750 MG CAPSULE PO SCH (11:15)
[2020-02-09] MEDS ORDERED: PANTOPRAZOLE 40 MG TABLET PO SCH (11:15)
--- NOTE | 2020-02-09 11:53 | P.PN ---
Subjective Progress Note Date: 02/09/20 This is a pleasant 59-year-old gentleman with history of hypertension and colitis. Presented to the hospital with symptoms of chest discomfort on and off for the last week at times with exertion which became significantly worse prior to admission. Also complaining of low-grade fever on presentation that subsequently resolved. Patient was found have elevated troponin and in view of that was recommended to undergo cardiac catheterization. This revealed normal coronary arteries with no evidence of obstructive CAD and normal LV end- diastolic pressure. CT angiogram was negative for PE. He remains chest pain- free. Vital signs are stable. He remains afebrile. Labs today show white count of 5200, BUN 11, creatinine 1.11. Stool was negative for C. diff. 02/09/2020 Patient was seen and examined this morning resting comfortably in bed. Labs this morning show normal white blood cell count, hemoglobin 12.0, normal electrolytes, BUN 11, creatinine 1.17 and he's had no further blood in his stools but continues to have loose stools. Blood pressure remains somewhat elevated in the mid 140s systolic which the patient says is where it usually runs when he follows up with his PCP. He is currently on metoprolol 25 mg by mouth twice a day. Objective - Vital Signs Vital signs: Vital Signs Temp 97.7 F 02/09/20 07:32 Pulse 74 02/09/20 07:32 Resp 18 02/09/20 07:32 BP 139/85 02/09/20 07:32 Pulse Ox 99 02/09/20 07:32 Intake & Output 02/08/20 02/09/20 02/09/20 18:59 06:59 18:59 Intake Total 660 237 180 Balance 660 237 180 Weight 111.6 kg Intake: Oral 660 237 180 - Exam PHYSICAL EXAMINATION: HEENT: Head is atraumatic, normocephalic. Pupils equal, round. Neck is supple. There is no elevated jugular venous pressure. HEART EXAMINATION: Heart sounds regular, S1 and S2 normal. No murmur or gallop heard. CHEST EXAMINATION: Lungs are clear to auscultation. No chest wall tenderness is noted on palpation or with deep breathing. ABDOMEN: Soft, nontender. Bowel sounds are heard. No organomegaly noted. EXTREMITIES: 2+ peripheral pulses with no evidence of peripheral edema and no calf tenderness noted. Right radial puncture site soft without ecchymosis or hematoma. NEUROLOGIC patient is awake, alert and oriented x3. . - Labs CBC & Chem 7: 02/09/20 05:53 02/09/20 05:53 Labs: Abnormal Lab Results - Last 24 Hours (Table) 02/09/20 02/09/20 Range/Units 05:53 05:53 RBC 3.98 L (4.30-5.90) m/uL Hgb 12.0 L (13.0-17.5) gm/dL Hct 37.3 L (39.0-53.0) % Glucose 105 H (74-99) mg/dL Microbiology - Last 24 Hours (Table) 02/06/20 22:10 Blood Culture - Preliminary Blood No Growth after 48 hours Assessment and Plan Assessment: #1 troponin elevation of unclear etiology, no evidence of obstructive CAD and no segmental wall motion abnormalities on echocardiogram #2 low-grade fever, resolved, unclear source, being followed by infectious disease #3 hypertension, suboptimally controlled #4 remote history of smoking #5 history of colitis Plan: From cardiology's perspective, we will add amlodipine for better blood pressure control. From our standpoint patient may be discharged home when okay with primary and ID. He will follow-up in the office with Dr. Alejandra. PRESS OFFICER note has been reviewed, I agree with a documented findings and plan of care. Patient was seen and examined.
[2020-02-09] MEDS ORDERED: amLODIPine 5 MG TAB PO SCH (12:00)
--- NOTE | 2020-02-09 14:28 | P.PN ---
Progress Note - Text Progress Note Date: 02/09/20 REASON FOR FOLLOWUP: Fever and a question of colitis. INTERVAL HISTORY: The patient remains to be afebrile, patient is breathing comfortably, patient denies having any chest pain. No shortness of breath or cough. No nausea, no vomiting. No abdominal pain. The patient diarrhea has improved and have soft bowel movement and no further blood in the stool PHYSICAL EXAMINATION: Blood pressure is 139/85 with a pulse of 74, temperature 97.7. He is 99% on room air. General description is a middle-aged male, lying in bed in no distress. RESPIRATORY SYSTEM: Unlabored breathing, clear to auscultation anteriorly. HEART: S1, S2. Regular rate and rhythm. ABDOMEN: Soft, no tenderness. LABS:. Stool for C difficile negative, stool culture pending, blood culture so far negative. DIAGNOSTIC IMPRESSION AND PLAN: Patient with fever with concern for possible abdominal source. The patient did have a significant diarrhea with hematochezia in this patient with History of ulcerative colitis. CT abdominal, pelvis did not show any acute findings. Patient responding to Rocephin and Flagyl , with a plan to finish therapy with oral Ceftin and Flagyl for about a week and advised to follow-up with his GI specialist and not to miss his ulcerative colitis medication.
== END 2020-02-09 12:36 | disposition home or self-care (01) | DRG 287 ==
LOC: EC 21:41 → 2SICU 23:21 → 3SCARD 02-08 06:29
PROVIDERS: ADMIT Family Medicine; ATTEND Family Medicine
PROC: B2111ZZ Fluoroscopy of Multiple Coronary Arteries using Low Osmolar Contrast (ICD-10-PCS; 2020-02-07)
PROC: 4A023N7 Measurement of Cardiac Sampling and Pressure, Left Heart, Percutaneous Approach (ICD-10-PCS; principal; 2020-02-07 09:50)
DX: R07.89 Other chest pain (principal); K51.911 Ulcerative colitis, unspecified with rectal bleeding; A09 Infectious gastroenteritis and colitis, unspecified; Z20.828 Contact with and (suspected) exposure to other viral communicable diseases; M06.9 Rheumatoid arthritis, unspecified; I10 Essential (primary) hypertension; K21.9 Gastro-esophageal reflux disease without esophagitis; R00.0 Tachycardia, unspecified; D72.810 Lymphocytopenia; R79.89 Other specified abnormal findings of blood chemistry; E86.0 Dehydration; T47.8X6A Underdosing of other agents primarily affecting gastrointestinal system, initial encounter; R19.5 Other fecal abnormalities; Z79.899 Other long term (current) drug therapy; Z87.891 Personal history of nicotine dependence; Z91.128 Patient's intentional underdosing of medication regimen for other reason; Z83.438 Family history of other disorder of lipoprotein metabolism and other lipidemia; Z80.8 Family history of malignant neoplasm of other organs or systems
CPT/HCPCS: 36415; 71046; 71275; 74176; 80048; 80053; 80061; 82728; 83605; 83615; 83735; 84145; 84484; 85025; 85379; 85610; 85730; 86140; 87040; 87045; 87046; 87324; 93005; 93306; 93458; 96361; 96365; 96367; 96375; 96376; 99285